=== PATIENT | male | born 1960 | race Caucasian/White ===

== ENCOUNTER 2016-06-21 22:13 | Day surgery (SDC) | payer BC, OTHER ==
[~2016-06-21] VITALS: Ht 174 cm; Wt 77.6 kg
[2016-06-21] MEDS ORDERED: HYDR25TA6 PO (22:27)
[2016-06-21] MEDS ORDERED: RAMI5CA (22:27)
[2016-06-21] MEDS ORDERED: RAMI10CA PO (22:27)
[2016-06-21] MEDS ORDERED: RANI15TA PO (22:27)
[2016-06-21] MEDS ORDERED: NS 1,000 ML IV ONE (22:30)
[2016-06-21] MEDS ORDERED: HYDROmorphone HCL 1 MG/ML SYRINGE (J1170) IV ONE (22:30)
[2016-06-21] MEDS ORDERED: GI COCKTAIL 50ML BTL(HYOSCYAMINE/MAALOX/LIDOCAINE VISCOUS)(1:3:1) PO ONE (22:30)
[2016-06-21] MEDS ORDERED: PANTOPRAZOLE 40MG INJ (PROTONIX) (C9113) IV ONE (22:30)
[2016-06-21 22:49] LABS: BASO # 0.1 K/mm3 (0.0-0.2); BASO % 0.9 % (0.0-1.0); EOS # 0.5 K/mm3 (0.0-0.50); EOS % 6.7 % (0.0-3.0); LARGE UNSTAINED CELL # 0.1 K/mm3 (0.0-0.4); LARGE UNSTAINED CELL % 1.6 % (0.0-4.0); LYMPH % 23.9 % (24.0-44.0); MEAN CORPUSCULAR HEMOGLOBIN 31.8 pg (27.0-33.0); MEAN CORPUSCULAR HGB CONC 34.6 g/dl (32.0-36.5); MEAN CORPUSCULAR VOLUME 91.7 fl (80.0-96.0); MONO # 0.5 K/mm3 (0.0-0.8); MONO % 5.7 % (0.0-5.0); NEUTROPHILS # 4.9 K/mm3 (1.8-7.7); NEUTROPHILS % 61.2 % (36.0-66.0); PLATELET COUNT, AUTOMATED 220 k/mm3 (150-450); RED CELL DISTRIBUTION WIDTH 12.5 % (11.5-14.5)
[2016-06-21 23:14] LABS: ALBUMIN 3.8 GM/DL (3.2-5.2); ALBUMIN/GLOBULIN RATIO 1.27 (1.00-1.93); ALKALINE PHOSPHATASE 74 U/L (45-117); ALT/SGPT 18 U/L (12-78); AMYLASE 71 U/L (25-115); ANION GAP 7 MEQ/L (8-16); AST/SGOT 8 U/L (15-37); BILIRUBIN,DIRECT < 0.1 MG/DL (0.0-0.2); BILIRUBIN,TOTAL 0.3 MG/DL (0.2-1.0); BLOOD UREA NITROGEN 15 MG/DL (7-18); CALCIUM LEVEL 9.3 MG/DL (8.5-10.1); CARBON DIOXIDE LEVEL 31 MEQ/L (21-32); CHLORIDE LEVEL 101 MEQ/L (98-107); CREATININE FOR GFR 1.13 MG/DL (0.70-1.30); GLOMERULAR FILTRATION RATE > 60.0 (>56); GLUCOSE, FASTING 117 MG/DL (70-105); POTASSIUM SERUM 3.4 MEQ/L (3.5-5.1); SODIUM LEVEL 139 MEQ/L (136-145); TOTAL PROTEIN 6.8 GM/DL (6.4-8.2)
[2016-06-21] MEDS ORDERED: ISOVUE-370 76% 100ML VIAL (Q9967) As Ordered ONE (23:38)
[2016-06-22] VITALS (9 sets, daily range): BP systolic 129–163; BP diastolic 73–91
--- NOTE | 2016-06-22 00:30 | REPUSA ---
CT of the abdomen and pelvis with contrast Clinical statement: Pain. Technique: Multiple axial CT images were obtained from the base of the lungs through the floor of the pelvis utilizing 5 mm axial slices after administration of nonionic intravenous contrast. Coronal an d sagittal reconstructions were also obtained. No comparison is available. Findings: Chest: The visualized lung bases are clear. Abdomen: The spleen, pancreas, left kidney, and adrenal glands are unremarkable. There is moderate am ount of pericholecystic free fluid. No cholelithiasis or gallbladder wall thickening is noted. There is no evidence of biliary ductal dilatation. There is a 1 cm simple cyst in the upper lateral right k idney. There is a ill-defined low attenuation lesion in the left lobe of the liver measuring 1.4 x 0. 9 cm. The aorta is within normal limits. There is no evidence of abdominal lymphadenopathy or ascites . Pelvis: The bowel is unremarkable, with no obstructive or inflammatory changes. The appendix is oneil l. The urinary bladder is within normal limits. The prostate is enlarged, measuring 4.2 x 5.1 cm. The re is no evidence of pelvic lymphadenopathy or ascites. Bones: There are no suspicious osseous abnormalities seen. Impression: 1. Moderate amount of pericholecystic free fluid. No evidence of gallstones, gallbladder wall thicken ing, or biliary ductal dilatation. If there is further clinical concern, ultrasound of the gallbladde r is recommended. 2. Simple right renal cyst. 3. Ill-defined low attenuation lesion in the left lobe of the liver. This could represent a small hem angioma. If there is further clinical concern, ultrasound may be helpful. 4. No obstructive or inflammatory bowel changes. 5. Enlarged prostate.
--- NOTE | 2016-06-22 02:00 | REPUSA ---
CLINICAL HISTORY: Abdominal pain. TECHNIQUE: Realtime sonographic images were obtained in multiple projections. COMMENTS: The liver is of normal size, parenchyma demonstrates normal echogenicity. No discrete hepatic mass is seen. There is no intra or extrahepatic biliary ductal dilatation. CBD measures 5.7 mm. The gallbladder is physiologically distended without evidence of calculi. The gallbladder wall is diffusely thickened an d there is small amount of free pericholecystic fluid. There is no abdominal ascites. The right kidney measures 10.9x5.1x5 cm, free of hydronephrosis. 1.2 cm cyst in the upper part of the right kidney. IMPRESSION: Acute inflammatory changes of the wall of the gallbladder. Thickened wall of the gallbladder. Surrounding pericholecystic fluid. No dilated biliary tree. Thank you for your kind referral of this patient.
[2016-06-22] MEDS ORDERED: MORPHINE 4 MG/ML 1ML SYRINGE IV ONE (02:15)
[2016-06-22] MEDS: LR 1,000 ML IV SCH ×3 (02:44→21:35)
[2016-06-22] MEDS ORDERED: MORPHINE 4 MG/ML 1ML SYRINGE IV PRN (02:45)
[2016-06-22] MEDS ORDERED: ACETAMINOPHEN TAB 650MG DOSE (2X325MG) PO PRN (02:45)
[2016-06-22] MEDS ORDERED: NORCO, ANEXSIA 5/325MG TABLET (HYDROcodone/ACETAMINOPHEN) PO PRN (02:45)
[2016-06-22] MEDS ORDERED: HYDR25TAB PO (02:46)
[2016-06-22] MEDS ORDERED: KETO0.05 TOP (02:46)
[2016-06-22] MEDS ORDERED: PROA1AER INH (02:49)
[2016-06-22] MEDS: metroNIDAZOLE 500 MG in APPROPRIATE DILUENT 1 EA IV SCH ×3 (05:35→21:35)
[2016-06-22] MEDS: AMPICILLIN SOD/SULBACTAM SOD 3 GM in D5W MINI-BAG PLUS 100 ML IV SCH ×4 (05:35→22:37)
[2016-06-22] MEDS: SENOKOT S TAB PO SCH ×2 (08:35→21:35)
[2016-06-22] MEDS: hydroCHLOROthiazide 25 MG TAB PO SCH (09:00)
[2016-06-22] MEDS: RAMIPRIL 5 MG CAP PO SCH (09:00)
[2016-06-22] MEDS ORDERED: LIDOCAINE 1% SDV INJ 30 ML VIAL As Ordered ONE (10:45)
[2016-06-22] MEDS ORDERED: BUPIVACAINE HCL 0.25% 30 ML VIAL As Ordered ONE (10:45)
[2016-06-22] MEDS ORDERED: UNASYN 1.5 GM VIAL As Ordered ONE (14:52)
[2016-06-22] MEDS ORDERED: MIDAZOLAM INJ 2 MG/2 ML VIAL (J2250) As Ordered ONE (15:31)
[2016-06-22] MEDS ORDERED: ROCURONIUM BROMIDE 50 MG/5 ML VIAL As Ordered ONE (15:31)
[2016-06-22] MEDS ORDERED: LIDOCAINE 2% INJ 100 MG/5 ML SDV (FOR ANES.) As Ordered ONE (15:31)
[2016-06-22] MEDS ORDERED: fentaNYL 100 MCG/2 ML INJECTION (J3010) As Ordered ONE ×3 (15:31→17:43)
[2016-06-22] MEDS ORDERED: ONDANSETRON 4MG/2ML VIAL (J2405) As Ordered ONE (15:31)
[2016-06-22] MEDS ORDERED: PROPOFOL 200 MG/20 ML VIAL As Ordered ONE (15:31)
[2016-06-22] MEDS ORDERED: HYDROmorphone HCL 2 MG/ML 1ML VIAL (J1170) As Ordered ONE (16:33)
[2016-06-22] MEDS ORDERED: KETOROLAC 60 MG/2 ML VIAL (J1885) As Ordered ONE (16:35)
[2016-06-22] MEDS ORDERED: NEOSTIGMINE 1MG/ML 5 ML SYRINGE (J2710) As Ordered ONE (16:51)
[2016-06-22] MEDS ORDERED: GLYCOPYRROLATE INJ 0.2 MG/ML 2 ML VIAL As Ordered ONE (16:51)
[2016-06-22] MEDS ORDERED: ONDANSETRON 4MG/2ML VIAL (J2405) IV PRN (17:30)
[2016-06-22] MEDS ORDERED: HYDROmorphone HCL 1 MG/ML SYRINGE (J1170) IV PRN (17:30)
[2016-06-22] MEDS ORDERED: PERCOCET 5MG/325MG TAB PO PRN (17:30)
[2016-06-22] MEDS ORDERED: LR 1,000 ML IV SCH (17:30)
[2016-06-22] MEDS ORDERED: PERCOCET 5MG/325MG TAB As Ordered ONE (17:43)
[2016-06-22] MEDS: fentaNYL 100 MCG/2 ML INJECTION (J3010) IV PRN ×3 (17:48→18:05)
[2016-06-22] MEDS: ONDANSETRON 4MG/2ML VIAL (J2405) IV PRN (18:36)
[2016-06-22] MEDS: FAMOTIDINE 20 MG TAB PO SCH (21:35)
[2016-06-22] MEDS: NORCO, ANEXSIA 5/325MG TABLET (HYDROcodone/ACETAMINOPHEN) PO PRN (21:51)
[2016-06-23] VITALS: BP 139/82
[2016-06-23] MEDS: LR 1,000 ML IV SCH ×2 (02:44→10:44)
[2016-06-23] MEDS: AMPICILLIN SOD/SULBACTAM SOD 3 GM in D5W MINI-BAG PLUS 100 ML IV SCH ×2 (03:53→08:37)
[2016-06-23] MEDS: NORCO, ANEXSIA 5/325MG TABLET (HYDROcodone/ACETAMINOPHEN) PO PRN ×2 (04:22→08:36)
[2016-06-23] MEDS: metroNIDAZOLE 500 MG in APPROPRIATE DILUENT 1 EA IV SCH ×2 (05:59→12:14)
[2016-06-23] MEDS: ONDANSETRON 4MG/2ML VIAL (J2405) IV PRN (07:51)
[2016-06-23 08:00] VITALS: BP 161/91
[2016-06-23] MEDS: FAMOTIDINE 20 MG TAB PO SCH ×2 (08:36→20:23)
[2016-06-23] MEDS: SENOKOT S TAB PO SCH (08:36)
[2016-06-23 08:37] VITALS: BP 161/91
[2016-06-23] MEDS: hydroCHLOROthiazide 25 MG TAB PO SCH (08:37)
[2016-06-23] MEDS: RAMIPRIL 5 MG CAP PO SCH (08:37)
[2016-06-23 12:00] VITALS: BP 144/92
[2016-06-23] MEDS: ONDANSETRON 4MG/2ML VIAL (J2405) IV SCH ×2 (12:14→17:13)
[2016-06-23 16:00] VITALS: BP 146/81
[2016-06-23] MEDS ORDERED: NORCOTAB PO (16:55)
[2016-06-23 20:00] VITALS: BP 131/80
--- NOTE | 2016-06-24 08:42 | ECGEPIP ---
Stationary ECG Study [facility] - ED Test Date: 2016-06-21 Pat Name: JEY BROWN Department: Room: [place] [address] Gender: M [employer]: aditya : 1960 Requested By: ROSI GARCIA Order Number: [id number] Reading MD: Fernie Christine Measurements Intervals [place] Rate: 69 P: 66 [place]: 160 QRS: 64 QRSD: 104 T: 69 QT: 383 QTc: 412 Interpretive Statements SINUS RHYTHM NO PRIOR Electronically Signed On 06-24-2016 8:42:28 EDT by Fernie Christine
--- NOTE | 2016-06-25 08:22 | RO ---
DATE OF PROCEDURE: 06/22/2016 PREOPERATIVE DIAGNOSIS: Acute cholecystitis. POSTOPERATIVE DIAGNOSIS: Acute cholecystitis. PROCEDURE: Laparoscopic cholecystectomy. SURGEON: Dr. Marcelo Gage RETAIL SALES ADVISOR: Dr. Saini ANESTHESIA: General anesthesia. ESTIMATED BLOOD LOSS: 25 mL COMPLICATIONS: None. REMARKS: Acutely inflamed and thickened gallbladder wall with thick bile, no definite stones identified. PROCEDURE: Mr. Little was admitted overnight with about a 4-day history of ongoing epigastric/right upper quadrant discomfort and found to have acute cholecystitis. He is being brought today for laparoscopic cholecystectomy. The patient has been receiving Unasyn and metronidazole perioperatively. He was brought to the operating room, placed in the table. General endotracheal anesthesia started. His abdomen was prepped and draped in the usual sterile fashion. Surgical time-out was performed and we began our surgery. A small incision created on superior portion of his umbilicus. A Veress needle inserted in controlled fashion. CO2 insufflation started to a pressure of 15 mmHg. Using the same incision, a 5 mm Visiport was placed under direct vision of the laparoscope. The insertion site was inspected. No injury found. He was placed on a reverse Trendelenburg position, right side tilted up to further expose the gallbladder. Three working ports were placed, an 11 mm epigastric port and two 5 mm ports over the right side. The gallbladder was noted to be moderately distended, acutely inflamed with edematous wall and some small amount of serous fluid around the gallbladder bed. The fundus of the gallbladder was grasped. The edges were elevated superiorly exposing the lower body neck and infundibulum of the gallbladder. This was thickened with a good amount of fat pad in between the cystic artery was running through a course a few centimeters away from the gallbladder wall. The peritoneum overlying this area was opened up. The cystic artery was circumferentially dissected high up on the gallbladder wall and we retrogradely dissected down to the hepatocystic triangle using a [place] instrument. The hepatocystic triangle was opened up. The infundibulum and the cystic duct coming off from it was identified and circumferentially dissected. We continued dissection freeing up the posterior wall of the neck of the gallbladder. We continued dissection until we met the critical view of safety whereby only the cystic artery and duct were coursing through the neck of the gallbladder. After this was done, the cystic artery was clipped four times and divided. We continued freeing up the cystic duct and likewise this was divided after placing four clips. The rest of the gallbladder was dissected free from the gallbladder wall. This was quite floppy. We got into the gallbladder towards the fundus with some spillage of the gallbladder contents. This was controlled with the grasper and subsequently detached from the liver. This was delivered in an EndoCatch bag, retrieved through the epigastric port site. On reinsufflation, we irrigated until we have clear returns. The clips were inspected and noted to be in place. No bile leakage or bleeding identified. The abdomen was then deflated. All ports removed. The epigastric fascial defect repaired with #0 Vicryl in a mattress fashion. All skin incisions closed with #4-0 Monocryl in subcuticular fashion. Steri-Strips and gauze dressings then placed. The patient promptly awakened, extubated, brought to recovery room stable.
== END 2016-06-23 21:10 | disposition home or self-care (01) ==
LOC: M ED 23:39 → M OROP 23:40 → M PED 23:40 → M OROP 06-22 02:44 → M ED INP 06-22 03:22 → M MS4PR 06-22 04:15 → M PED 06-22 12:13 → M OROP 06-23 21:10 → M PED 06-23 21:10
PROVIDERS: ATTEND Surgery
DX: K81.0 Acute cholecystitis (principal); I10 Essential (primary) hypertension; J45.909 Unspecified asthma, uncomplicated; Z79.899 Other long term (current) drug therapy
CPT/HCPCS: 47562; 74177; 76705; 80048; 80076; 82150; 82550; 82553; 83690; 85025; 88304; 93005; 96374; 96375; 96376; 99285; C9113; J1170; J2250; J2405; J2710; J3010; Q9967

== ENCOUNTER → 2016-07-22 | Outpatient (CLI) | payer BC, OTHER ==
[~2016-07-22] MED LIST: HYDR25TA6 PO; HYDR25TAB PO; KETO0.05 TOP; NORCOTAB PO; PROA1AER INH; RAMI10CA PO; RAMI5CA; RANI15TA PO
--- NOTE | 2016-07-23 08:11 | REP ---
CHEST, TWO VIEWS: Two views of the chest are performed. There is no evidence of acute infiltrate. There are fibrotic changes. Heart is normal in size. Mediastinal silhouette is unremarkable. There are degenerative changes of the spine. IMPRESSION: There appear to be chronic fibrotic changes. No definite acute infiltrate. Signed by Shamar Lazo MD 07/23/2016 12:22 P
== END ==
LOC: M ADAMS 09:35
PROVIDERS: ATTEND Physician Assistant
DX: J20.9 Acute bronchitis, unspecified (principal); R05 Cough

== ENCOUNTER → 2017-02-06 | Outpatient (REF) | payer OTHER ==
[~2017-02-06] MED LIST changes: -PROA1AER INH; +PROAAER10 INH
[2017-02-06 19:52] LABS: MEAN CORPUSCULAR HEMOGLOBIN 31.3 pg (27.0-33.0); MEAN CORPUSCULAR HGB CONC 34.6 g/dl (32.0-36.5); MEAN CORPUSCULAR VOLUME 90.4 fl (80.0-96.0); PLATELET COUNT, AUTOMATED 256 10^3/uL (150-450); RED CELL DISTRIBUTION WIDTH 12.3 % (11.5-14.5); WHITE BLOOD COUNT 7.9 10^3/uL (4.0-10.0)
[2017-02-06 20:13] LABS: ALBUMIN 3.7 GM/DL (3.2-5.2); ALBUMIN/GLOBULIN RATIO 1.23 (1.00-1.93); ALKALINE PHOSPHATASE 79 U/L (45-117); ALT/SGPT 31 U/L (12-78); ANION GAP 7 MEQ/L (8-16); AST/SGOT 14 U/L (7-37); BILIRUBIN,TOTAL 0.3 MG/DL (0.2-1.0); BLOOD UREA NITROGEN 14 MG/DL (7-18); CARBON DIOXIDE LEVEL 31 MEQ/L (21-32); CHLORIDE LEVEL 103 MEQ/L (98-107); CHOLESTEROL LEVEL 196 MG/DL (<200); CREATININE FOR GFR 0.87 MG/DL (0.70-1.30); GLOMERULAR FILTRATION RATE > 60.0 (>56); GLUCOSE, FASTING 93 MG/DL (70-105); POTASSIUM SERUM 3.4 MEQ/L (3.5-5.1); SODIUM LEVEL 141 MEQ/L (136-145); TOTAL PROTEIN 6.7 GM/DL (6.4-8.2); TRIGLYCERIDES LEVEL 175 MG/DL (<150)
== END ==
LOC: M SFHCADAM 16:06
PROVIDERS: ATTEND Physician Assistant
DX: I10 Essential (primary) hypertension (principal); E78.5 Hyperlipidemia, unspecified; J45.20 Mild intermittent asthma, uncomplicated

== ENCOUNTER → 2018-08-14 | Outpatient (REF) | payer OTHER ==
[~2018-08-14] MED LIST changes: +HYDR-3715 PO; -NORCOTAB PO; -RAMI10CA PO; +RAMI1CAP24; +RAMI1CAP26 PO; -RAMI5CA
[2018-08-14 20:04] LABS: HEMATOCRIT 50.2 % (42.0-52.0); HEMOGLOBIN 17.4 g/dl (13.5-17.5); MEAN CORPUSCULAR HEMOGLOBIN 33.2 pg (27.0-33.0); MEAN CORPUSCULAR HGB CONC 34.7 g/dl (32.0-36.5); MEAN CORPUSCULAR VOLUME 95.8 fl (80.0-96.0); PLATELET COUNT, AUTOMATED 226 10^3/uL (150-450); RED BLOOD COUNT 5.24 10^6/uL (4.30-6.10); WHITE BLOOD COUNT 7.2 10^3/uL (4.0-10.0)
[2018-08-14 20:30] LABS: ALT/SGPT 20 U/L (12-78); BILIRUBIN,TOTAL 0.6 MG/DL (0.2-1.0); BLOOD UREA NITROGEN 12 MG/DL (7-18); CALCIUM LEVEL 8.7 MG/DL (8.5-10.1); CARBON DIOXIDE LEVEL 29 MEQ/L (21-32); CHLORIDE LEVEL 103 MEQ/L (98-107); CHOLESTEROL LEVEL 181 MG/DL (<200); CHOLESTEROL RISK RATIO 3.175 (<5); CREATININE FOR GFR 0.89 MG/DL (0.70-1.30); GLOMERULAR FILTRATION RATE > 60.0 (>56); GLUCOSE, FASTING 87 MG/DL (70-100); HDL CHOLESTEROL 57 MG/DL (>40); LDL CHOLESTEROL 106 MG/DL (<100); NON-HDL-C 124 MG/DL; POTASSIUM SERUM 3.4 MEQ/L (3.5-5.1); SODIUM LEVEL 139 MEQ/L (136-145); TRIGLYCERIDES LEVEL 92 MG/DL (<150)
[2018-08-14 20:48] LABS: MAU/CREAT RATIO 5.5 MCG/MG (0.0-30.0)
== END ==
LOC: M SFHCADAM 16:22
PROVIDERS: ATTEND Physician Assistant
DX: I10 Essential (primary) hypertension (principal); Z12.5 Encounter for screening for malignant neoplasm of prostate; E78.5 Hyperlipidemia, unspecified
CPT/HCPCS: 80053; 80061; 82043; 85027; G0103

== ENCOUNTER → 2020-05-06 | Outpatient (REF) | payer OTHER ==
[~2020-05-06] MED LIST changes: +HYDR-3490 PO; -HYDR25TAB PO
[2020-05-06 18:30] LABS: HEMATOCRIT 50.2 % (42.0-52.0); HEMOGLOBIN 17.2 g/dl (13.5-17.5); MEAN CORPUSCULAR HEMOGLOBIN 32.7 pg (27.0-33.0); MEAN CORPUSCULAR HGB CONC 34.3 g/dl (32.0-36.5); MEAN CORPUSCULAR VOLUME 95.4 fl (80.0-96.0); PLATELET COUNT, AUTOMATED 231 10^3/uL (150-450); RED BLOOD COUNT 5.26 10^6/uL (4.30-6.10); WHITE BLOOD COUNT 7.1 10^3/uL (4.0-10.0)
[2020-05-06 18:55] LABS: ALBUMIN 4.1 GM/DL (3.2-5.2); ALT/SGPT 23 U/L (12-78); BILIRUBIN,TOTAL 0.4 MG/DL (0.2-1.0); BLOOD UREA NITROGEN 15 MG/DL (7-18); CALCIUM LEVEL 8.9 MG/DL (8.5-10.1); CARBON DIOXIDE LEVEL 28 MEQ/L (21-32); CHLORIDE LEVEL 104 MEQ/L (98-107); CHOLESTEROL LEVEL 168 MG/DL (<200); CREATININE FOR GFR 0.88 MG/DL (0.70-1.30); GLOMERULAR FILTRATION RATE > 60.0 (>56); GLUCOSE, FASTING 91 MG/DL (70-100); HDL CHOLESTEROL 56 MG/DL (>40); LDL CHOLESTEROL 80 MG/DL (<100); NON-HDL-C 112 MG/DL; POTASSIUM SERUM 3.5 MEQ/L (3.5-5.1); SODIUM LEVEL 140 MEQ/L (136-145); TOTAL PROTEIN 6.6 GM/DL (6.4-8.2); TRIGLYCERIDES LEVEL 162 MG/DL (<150)
[2020-05-06 18:59] LABS: MALB URINE SIEMENS 6.3 MG/L; MAU/CREAT RATIO 5.2 MCG/MG (0.0-30.0)
== END ==
LOC: M SFHCADAM 15:24
PROVIDERS: ATTEND Physician Assistant
DX: I10 Essential (primary) hypertension (principal); Z12.5 Encounter for screening for malignant neoplasm of prostate

== ENCOUNTER 2020-11-14 09:14 | Emergency (ER) | payer BC, OTHER ==
[~2020-11-14] VITALS: Ht 175.3 cm; Wt 75.8 kg
--- NOTE | 2020-11-14 10:01 | REP ---
INDICATION: Altered Mental Status. COMPARISON: None. TECHNIQUE: Contiguous axial projection images were obtained of the brain. 2D coronal reconstructions were performed. FINDINGS: There is no evidence of acute intracranial hemorrhage or infarction. There are no abnormal intracranial masses or mass effects. The skull base and calvarium are normal. The visualized extracranial soft tissues are normal. IMPRESSION: Normal CT brain without IV contrast. <Electronically signed by Shaun Jameson > 11/14/20 [id number]
[2020-11-14 10:09] LABS: BASO # 0.1 10^3/uL (0.0-0.2); BASO % 0.7 % (0.0-1.0); EOS # 0.2 10^3/uL (0.0-0.5); EOS % 1.6 % (0.0-3.0); HEMATOCRIT 48.6 % (42.0-52.0); HEMOGLOBIN 17.2 g/dl (13.5-17.5); MEAN CORPUSCULAR HEMOGLOBIN 32.6 pg (27.0-33.0); MEAN CORPUSCULAR HGB CONC 35.4 g/dl (32.0-36.5); MONO # 0.5 10^3/uL (0.0-0.8); MONO % 5.1 % (2.0-8.0); NEUTROPHILS # 8.3 10^3/uL (1.5-8.5); NEUTROPHILS % 81.6 % (36.0-66.0); PLATELET COUNT, AUTOMATED 217 10^3/uL (150-450); RED BLOOD COUNT 5.28 10^6/uL (4.30-6.10); WHITE BLOOD COUNT 10.1 10^3/uL (4.0-10.0)
[2020-11-14] MEDS ORDERED: MECLIZINE 25 MG TABLET PO ONE (10:30)
[2020-11-14] MEDS ORDERED: diazePAM 10MG/2ML SYRINGE (J3360 PER 5MG) IV ONE (10:30)
--- NOTE | 2020-11-14 10:41 | REP ---
INDICATION: Altered Mental Status. COMPARISON: Upright PA and lateral chest 07/12/2016. TECHNIQUE: Upright AP portable chest image was obtained. FINDINGS: The lungs are clear. The heart borders mediastinum and pulmonary vascular pattern are normal. The upper abdominal bowel gas pattern is normal. There is mild levoscoliosis of the thoracolumbar spine. IMPRESSION: No evidence of acute cardiopulmonary pathology and no significant change. <Electronically signed by Shaun Jameson > 11/14/20 [id number]
[2020-11-14 10:45] LABS: ALBUMIN 3.8 GM/DL (3.2-5.2); ALT/SGPT 24 U/L (12-78); BILIRUBIN,DIRECT 0.1 MG/DL (0.0-0.2); BILIRUBIN,TOTAL 0.5 MG/DL (0.2-1.0); BLOOD UREA NITROGEN 12 MG/DL (7-18); CALCIUM LEVEL 9.1 MG/DL (8.8-10.2); CARBON DIOXIDE LEVEL 25 MEQ/L (21-32); CHLORIDE LEVEL 105 MEQ/L (98-107); CPK CREATINE PHOSPHOKINASE 52 U/L (39-308); CREATININE FOR GFR 0.93 MG/DL (0.70-1.30); GLOMERULAR FILTRATION RATE > 60.0 (>49); GLUCOSE, FASTING 128 MG/DL (70-100); MB/CK RELATIVE INDEX 1.92 (< OR =4); POTASSIUM SERUM 3.4 MEQ/L (3.5-5.1); SODIUM LEVEL 138 MEQ/L (136-145); TOTAL PROTEIN 6.8 GM/DL (6.4-8.2); TROPONIN I < 0.02 NG/ML (< 0.10)
[2020-11-14] MEDS ORDERED: MECL1TAB31 PO (13:25)
--- NOTE | 2020-11-14 15:03 | REPVR ---
PROCEDURE INFORMATION: Exam: MR Head Without Contrast Exam date and time: 11/14/2020 2:43 PM Age: 60 years old Clinical indication: Dizziness. TECHNIQUE: Imaging protocol: MR of the head without contrast. COMPARISON: CT Head without contrast 11/14/2020 9:34 AM FINDINGS: Brain: Normal. No acute infarct. No hemorrhage. No significant white matter disease. No edema. Cerebral ventricles: Normal. No ventriculomegaly. Bones/joints: Unremarkable. Paranasal sinuses: There is a retention cyst/polyp in the right maxillary sinus. Mastoid air cells: Normal as visualized. No mastoid effusion. Orbital cavity: Unremarkable. Soft tissues: Unremarkable. IMPRESSION: No acute findings. Electronically signed by: Jigar Jaramillo On 11/14/2020 15:03:12 PM
--- NOTE | 2020-11-14 15:14 | REPVR ---
PROCEDURE INFORMATION: Exam: MRA Head Without Contrast; Arteriography Exam date and time: 11/14/2020 2:43 PM Age: 60 years old Clinical indication: Dizziness and giddiness and vertigo; Additional info: Intratcable vertigo TECHNIQUE: Imaging protocol: Magnetic resonance angiography head without contrast. Exam focused on the arteries. COMPARISON: CT Head without contrast 11/14/2020 9:34 AM FINDINGS: ANTERIOR CIRCULATION: Right internal carotid artery: Intracranial segment is patent with no significant stenosis. No aneurysm. Right middle cerebral artery: No occlusion or significant stenosis. No aneurysm. Right anterior cerebral artery: No occlusion or significant stenosis. No aneurysm. Left internal carotid artery: Intracranial segment is patent with no significant stenosis. No aneurysm. Left middle cerebral artery: No occlusion or significant stenosis. No aneurysm. Left anterior cerebral artery: No occlusion or significant stenosis. No aneurysm. POSTERIOR CIRCULATION: Right vertebral artery: No occlusion or significant stenosis. No aneurysm. Left vertebral artery: The left vertebral artery terminates in a PICA. Basilar artery: No occlusion or significant stenosis. No aneurysm. Right posterior cerebral artery: No occlusion or significant stenosis. No aneurysm. Left posterior cerebral artery: No occlusion or significant stenosis. No aneurysm. 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 Sinuses: There is a retention cyst/polyp in the right maxillary sinus. 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 Electronically signed by: Jigar Jaramillo On 11/14/2020 15:14:02 PM
[2020-11-14 15:47] VITALS: BP 127/79
[2020-11-14] MEDS ORDERED: physical therapy (15:50)
--- NOTE | 2020-11-14 16:57 | ECGEPIP ---
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
== END 2020-11-14 16:17 | disposition home or self-care (01) ==
LOC: M ED 09:14
DX: H81.399 Other peripheral vertigo, unspecified ear (principal); I10 Essential (primary) hypertension; Z79.899 Other long term (current) drug therapy
CPT/HCPCS: 70450; 70544; 70551; 71045; 80048; 80076; 82140; 82550; 82553; 84443; 84484; 85025; 93005; 93041; 94760; 96374; 99284; J3360

== ENCOUNTER 2021-03-05 05:13 | Emergency (ER) | payer BC, OTHER ==
[~2021-03-05] VITALS: Ht 175.3 cm; Wt 74.1 kg
[~2021-03-05 05:13] MED LIST changes: +MECL1TAB31 PO; +physical therapy
[2021-03-05] MEDS ORDERED: NS 1,000 ML IV ONE (06:50)
[2021-03-05] MEDS ORDERED: methylPREDNISolone 125MG 2ML VIAL IV ONE (06:50)
[2021-03-05] MEDS ORDERED: ALBUTEROL 90 MCG/ACT 8GM HFA INHALER INH SCH (06:50)
[2021-03-05 07:06] LABS: BASO # 0.1 10^3/uL (0.0-0.2); BASO % 0.5 % (0.0-1.0); EOS # 0.2 10^3/uL (0.0-0.5); EOS % 1.6 % (0.0-3.0); HEMATOCRIT 46.6 % (42.0-52.0); HEMOGLOBIN 16.2 g/dl (13.5-17.5); LYMPH # 0.9 10^3/uL (1.5-5.0); LYMPH % 8.1 % (24.0-44.0); MEAN CORPUSCULAR HEMOGLOBIN 31.8 pg (27.0-33.0); MEAN CORPUSCULAR HGB CONC 34.8 g/dl (32.0-36.5); MEAN CORPUSCULAR VOLUME 91.6 fl (80.0-96.0); MONO # 0.9 10^3/uL (0.0-0.8); MONO % 8.6 % (2.0-8.0); NEUTROPHILS # 8.8 10^3/uL (1.5-8.5); NEUTROPHILS % 80.9 % (36.0-66.0); PLATELET COUNT, AUTOMATED 198 10^3/uL (150-450); RED BLOOD COUNT 5.09 10^6/uL (4.30-6.10); WHITE BLOOD COUNT 10.9 10^3/uL (4.0-10.0)
[2021-03-05 07:09] LABS: RSV AMPLIFICATION NEGATIVE (NEGATIVE)
[2021-03-05 07:32] LABS: BLOOD UREA NITROGEN 10 MG/DL (7-18); C REACTIVE PROTEIN QUANTITATIV 6.15 MG/DL (0.00-0.30); CALCIUM LEVEL 8.6 MG/DL (8.8-10.2); CARBON DIOXIDE LEVEL 29 MEQ/L (21-32); CHLORIDE LEVEL 101 MEQ/L (98-107); CREATININE FOR GFR 0.69 MG/DL (0.70-1.30); GLOMERULAR FILTRATION RATE > 60.0 (>49); GLUCOSE, FASTING 116 MG/DL (70-100); SODIUM LEVEL 137 MEQ/L (136-145)
[2021-03-05 07:36] LABS: ERYTHROCYTE SEDIMENTATION RATE 21 mm/hr (0-20)
[2021-03-05] MEDS ORDERED: AZITHROMYCIN 250MG TABLET PO ONE (08:00)
[2021-03-05] MEDS ORDERED: POTASSIUM CHLORIDE 10MEQ SR TABLET PO ONE (08:00)
[2021-03-05] MEDS ORDERED: PRED20TA PO (08:01)
[2021-03-05] MEDS ORDERED: AZIT-10 PO (08:01)
[2021-03-05] MEDS ORDERED: TESS100C PO (08:01)
[2021-03-05] MEDS ORDERED: PROAAER10 INH (08:01)
[2021-03-05 08:07] VITALS: BP 131/79
== END 2021-03-05 08:13 | disposition home or self-care (01) ==
LOC: M ED 05:13
DX: J06.9 Acute upper respiratory infection, unspecified (principal); I10 Essential (primary) hypertension; J45.909 Unspecified asthma, uncomplicated; K21.9 Gastro-esophageal reflux disease without esophagitis; Z79.899 Other long term (current) drug therapy
CPT/HCPCS: 71045; 80048; 85025; 85652; 86140; 87631; 96374; 99284; J2930

== ENCOUNTER → 2021-12-21 | Outpatient (REF) | payer OTHER ==
[~2021-12-21] MED LIST changes: +AZIT-10 PO; +PRED20TA PO; +TESS100C PO
[2021-12-21 18:18] LABS: HEMATOCRIT 46.7 % (42.0-52.0); MEAN CORPUSCULAR HEMOGLOBIN 32.3 pg (27.0-33.0); MEAN CORPUSCULAR HGB CONC 34.3 g/dl (32.0-36.5); MEAN CORPUSCULAR VOLUME 94.3 fl (80.0-96.0); PLATELET COUNT, AUTOMATED 223 10^3/uL (150-450); RED BLOOD COUNT 4.95 10^6/uL (4.30-6.10); WHITE BLOOD COUNT 6.6 10^3/uL (4.0-10.0)
[2021-12-21 18:57] LABS: BLOOD UREA NITROGEN 10 MG/DL (7-18); CARBON DIOXIDE LEVEL 29 MEQ/L (21-32); CHLORIDE LEVEL 101 MEQ/L (98-107); CREATININE FOR GFR 0.92 MG/DL (0.70-1.30); GLOMERULAR FILTRATION RATE > 60.0 (>49); GLUCOSE, FASTING 91 MG/DL (70-100); POTASSIUM SERUM 3.3 MEQ/L (3.5-5.1); SODIUM LEVEL 140 MEQ/L (136-145)
[2021-12-21 18:58] LABS: ALBUMIN 3.9 GM/DL (3.2-5.2); ALT/SGPT 20 U/L (12-78); BILIRUBIN,TOTAL 0.6 MG/DL (0.2-1.0); CALCIUM LEVEL 8.9 MG/DL (8.8-10.2); CHOLESTEROL LEVEL 189 MG/DL (<200); CHOLESTEROL RISK RATIO 2.454 (<5); HDL CHOLESTEROL 77 MG/DL (>40); LDL CHOLESTEROL 100 MG/DL (<100); NON-HDL-C 112 MG/DL; TOTAL PROTEIN 6.7 GM/DL (6.4-8.2); TRIGLYCERIDES LEVEL 60 MG/DL (<150)
== END ==
LOC: M SFHCADAM 15:19
PROVIDERS: ATTEND Physician Assistant
DX: I10 Essential (primary) hypertension (principal); Z12.5 Encounter for screening for malignant neoplasm of prostate; R42 Dizziness and giddiness; J45.20 Mild intermittent asthma, uncomplicated; E78.5 Hyperlipidemia, unspecified; N52.9 Male erectile dysfunction, unspecified

== ENCOUNTER → 2023-03-20 | Outpatient (REF) | payer BC, OTHER ==
[~2023-03-20] MED LIST changes: +MECL-209 PO; -MECL1TAB31 PO
[2023-03-20 17:44] LABS: BASO # 0.1 10^3/uL (0.0-0.2); BASO % 0.9 % (0.0-1.0); EOS # 0.4 10^3/uL (0.0-0.5); EOS % 4.3 % (0.0-3.0); HEMATOCRIT 49.2 % (42.0-52.0); LYMPH # 1.7 10^3/uL (1.5-5.0); LYMPH % 19.4 % (24.0-44.0); MEAN CORPUSCULAR HEMOGLOBIN 32.6 pg (27.0-33.0); MEAN CORPUSCULAR HGB CONC 34.6 g/dl (32.0-36.5); MEAN CORPUSCULAR VOLUME 94.4 fl (80.0-96.0); MONO # 0.7 10^3/uL (0.0-0.8); MONO % 7.9 % (2.0-8.0); NEUTROPHILS # 5.9 10^3/uL (1.5-8.5); NEUTROPHILS % 67.2 % (36.0-66.0); PLATELET COUNT, AUTOMATED 232 10^3/uL (150-450); RED BLOOD COUNT 5.21 10^6/uL (4.30-6.10); WHITE BLOOD COUNT 8.8 10^3/uL (4.0-10.0)
[2023-03-20 18:10] LABS: ALBUMIN 4.1 G/DL (3.2-5.2); ALKALINE PHOSPHATASE 63 U/L (46-116); ALT/SGPT 18 U/L (7.0-40); AST/SGOT < 8 U/L (<34); BILIRUBIN,TOTAL 0.5 MG/DL (0.3-1.2); BLOOD UREA NITROGEN 15 MG/DL (9-23); CALCIUM LEVEL 9.4 MG/DL (8.3-10.6); CARBON DIOXIDE LEVEL 30 MMOL/L (20-31); CHLORIDE LEVEL 104 MMOL/L (98-107); CHOLESTEROL LEVEL 190 MG/DL (<200); CHOLESTEROL RISK RATIO 3.36 (<5); CREATININE FOR GFR 0.91 MG/DL (0.70-1.30); GLOMERULAR FILTRATION RATE > 60.0 (>49); GLUCOSE, FASTING 90 MG/DL (74-106); HDL CHOLESTEROL 56.4 MG/DL (>40); NON-HDL-C 133.6 MG/DL; POTASSIUM SERUM 3.5 MMOL/L (3.5-5.1); PSA SCREENING 2.22 NG/ML (< 4.00); SODIUM LEVEL 139 MMOL/L (136-145); TOTAL PROTEIN 6.6 G/DL (5.7-8.2); TRIGLYCERIDES LEVEL 218 MG/DL (<150)
== END ==
LOC: M SFHCADAM 14:33
PROVIDERS: ATTEND Physician Assistant
DX: I10 Essential (primary) hypertension (principal); Z12.11 Encounter for screening for malignant neoplasm of colon; Z12.5 Encounter for screening for malignant neoplasm of prostate; J45.20 Mild intermittent asthma, uncomplicated; N52.9 Male erectile dysfunction, unspecified
CPT/HCPCS: 80053; 80061; 85025; G0103

== ENCOUNTER 2023-11-20 07:54 | Day surgery (SDC) | payer BC ==
[~2023-11-20] VITALS: Ht 175.3 cm; Wt 371.5 kg
[~2023-11-20 07:54] MED LIST changes: +NS 1,000 ML IV ONE; +PROA1AER2 IN; +RAMI10CA64 PO; -RAMI1CAP24; -RAMI1CAP26 PO; +RAMI5CAP60
[2023-11-20 08:58] VITALS: TEMP 97.3
[2023-11-20 09:15] VITALS: BP 116/69; O2SAT 95
== END 2023-11-20 09:21 | disposition home or self-care (01) ==
LOC: M OPP 07:54
PROVIDERS: ATTEND Internal Medicine Gastroenterology
DX: Z12.11 Encounter for screening for malignant neoplasm of colon (principal); D12.6 Benign neoplasm of colon, unspecified; K64.0 First degree hemorrhoids; K57.30 Diverticulosis of large intestine without perforation or abscess without bleeding; Z79.51 Long term (current) use of inhaled steroids; Z79.899 Other long term (current) drug therapy

== ENCOUNTER → 2024-03-24 | Outpatient (REF) | payer BC ==
[~2024-03-24] MED LIST changes: -NS 1,000 ML IV ONE
[2024-03-24 17:37] LABS: HEMATOCRIT 53.5 % (42.0-52.0); HEMOGLOBIN 18.6 g/dl (13.5-17.5); MEAN CORPUSCULAR HEMOGLOBIN 32.5 pg (27.0-33.0); MEAN CORPUSCULAR HGB CONC 34.8 g/dl (32.0-36.5); MEAN CORPUSCULAR VOLUME 93.4 fl (80.0-96.0); PLATELET COUNT, AUTOMATED 223 10^3/uL (150-450); RED BLOOD COUNT 5.73 10^6/uL (4.30-6.10); WHITE BLOOD COUNT 5.8 10^3/uL (4.0-10.0)
[2024-03-24 17:46] LABS: PSA SCREENING 2.91 NG/ML (< 4.00)
[2024-03-24 17:50] LABS: ALBUMIN 4.3 G/DL (3.2-5.2); ALKALINE PHOSPHATASE 59 U/L (40-129); ALT/SGPT 20 U/L (7.0-40); AST/SGOT 14 U/L (<34); BILIRUBIN,TOTAL 0.8 MG/DL (0.3-1.2); BLOOD UREA NITROGEN 17 MG/DL (9-23); CALCIUM LEVEL 9.2 MG/DL (8.3-10.6); CARBON DIOXIDE LEVEL 27 MMOL/L (20-31); CHLORIDE LEVEL 102 MMOL/L (98-107); CHOLESTEROL LEVEL 212 MG/DL (<200); CHOLESTEROL RISK RATIO 3.37 (<5); CREATININE FOR GFR 0.82 MG/DL (0.70-1.30); GLOMERULAR FILTRATION RATE > 60.0 (>49); GLUCOSE, FASTING 87 MG/DL (74-106); HDL CHOLESTEROL 62.9 MG/DL (>40); LDL CHOLESTEROL 128.7 MG/DL (<100); NON-HDL-C 149.1 MG/DL; POTASSIUM SERUM 3.6 MMOL/L (3.5-5.1); SODIUM LEVEL 141 MMOL/L (136-145); TOTAL PROTEIN 7.1 G/DL (5.7-8.2); TRIGLYCERIDES LEVEL 102 MG/DL (<150)
[2024-03-24 18:03] LABS: HEMOGLOBIN A1c 5.2 % (4.0-6.0)
== END ==
LOC: M SFHCADAM 11:54
PROVIDERS: ATTEND Physician Assistant
DX: Z00.00 Encounter for general adult medical examination without abnormal findings (principal); I10 Essential (primary) hypertension; Z12.5 Encounter for screening for malignant neoplasm of prostate; L21.9 Seborrheic dermatitis, unspecified; J45.20 Mild intermittent asthma, uncomplicated; Z13.220 Encounter for screening for lipoid disorders